=== PATIENT | female | born 1945 | race Caucasian/White ===

== ENCOUNTER 2024-05-14 05:37 | Day surgery (SDC) | payer MEDICARE, BC ==
[2024-05-09 11:17] LABS: BASOPHILS # (AUTO) 0.1 X10'3 (0-0.2); BASOPHILS % (AUTO) 0.9 % (0-1); EOSINOPHILS # (AUTO) 0.1 X10'3 (0-0.9); EOSINOPHILS % (AUTO) 1.3 % (0-6); LYMPHOCYTES # (AUTO) 3.8 X10'3 (1.1-4.8); LYMPHOCYTES % (AUTO) 35.1 % (21-51); MEAN CORPUSCULAR HEMOGLOBIN 30.7 PG (27.0-31.0); MEAN CORPUSCULAR HGB CONC 33.3 g/dL (33.0-36.5); MEAN PLATELET VOLUME 8.6 FL (7.4-10.4); MONOCYTES # (AUTO) 0.8 X10'3 (0-0.9); MONOCYTES % (AUTO) 6.9 % (2-12); NEUTROPHILS # (AUTO) 6.1 X10'3 (1.8-7.7); NEUTROPHILS % (AUTO) 55.8 % (42-75); PRE OP HEMATOCRIT 42.7 % (35.0-45.0); PRE OP HEMOGLOBIN 14.2 g/dL (12.0-16.0); PRE OP PLATELET COUNT 322 X10'3 (140-440); PRE OP WHITE BLOOD COUNT 10.9 10'3 (4.8-10.8); RED BLOOD COUNT 4.65 X10'6 (4.20-5.60); RED CELL DISTRIBUTION WIDTH 13.5 % (11.5-14.5)
[2024-05-09 11:38] LABS: ALBUMIN/GLOBULIN RATIO 1.2 (1.1-1.5); ALKALINE PHOSPHATASE 63 IU/L (46-116); BLOOD UREA NITROGEN 9 MG/DL (7-18); BUN/CREATININE RATIO 13.2 (10.0-20.0); CALCIUM 8.7 MG/DL (8.5-10.1); CHLORIDE 107 MMOL/L (99-107); CREATININE 0.68 MG/DL (0.40-0.90); PRE OP ALT 44 U/L (30-65); PRE OP ANION GAP 9 (8-16); PRE OP AST 22 U/L (10-37); PRE OP BILIRUB, TOTAL 0.4 MG/DL (0.0-1.0); PRE OP GLUCOSE 93 MG/DL (70-104); PRE OP POTASSIUM 4.1 MMOL/L (3.4-5.1); PRE OP SODIUM 143 MMOL/L (135-145); TOTAL CARBON DIOXIDE 27.5 MMOL/L (24-32); TOTAL PROTEIN 7.3 G/DL (6.4-8.2); eGFR 84 ML/MIN
[2024-05-14] VITALS (7 sets, daily range): BP systolic 129–139; BP diastolic 66–93; PULSE 61–84; RESP 11–17; TEMP 98.2; O2SAT 95–98
[~2024-05-14] VITALS: Ht 161.3 cm; Wt 73.9 kg
[2024-05-14] MEDS: ceFAZolin 2gm in dextrose, iso 50 ML IV ONE (05:30)
[~2024-05-14 05:37] MED LIST: ATOR40TA72 PO; BISA-78 PO; DOCU-148 PO; LEVO75TA7 PO; LORA10TA7 PO; LUBI8CAP PO; MAGN100T PO; MONT-40 PO; MULT-1249 PO; NAPR220T67 PO; PUMPKIN SEED OIL PO; SENAKOT PO; SUPER C PO; TIRZ10PE SQ; [UNRECOGNIZED DRUG - OTHER] PO; [UNRECOGNIZED DRUG - REMARK] PO
[2024-05-14] MEDS ORDERED: BUPIVAcaine/PF 2.5mg/ml (0.25%) 10ml vial ONE (06:45)
[2024-05-14] MEDS ORDERED: LIDOcaine 2% (20mg/ml) 5ml vial ONE (06:45)
[2024-05-14] MEDS: famotidine 20mg tablet PO ONE (06:53)
[2024-05-14] MEDS: ringers solution, lacted 1,000 ML IV SCH (06:54)
[2024-05-14] MEDS ORDERED: midazolam 1 mg/ML 2ml injection ONE (08:13)
[2024-05-14] MEDS ORDERED: fentaNYL/PF 50MCG/1 ML 2ML syringe ONE (08:13)
[2024-05-14] MEDS ORDERED: propofol inj 20 ML IV ONE (08:24)
[2024-05-14] MEDS: BUPIVAcaine/PF 2.5mg/ml (0.25%) 10ml vial IJ ONE (09:09)
== END 2024-05-14 09:34 | disposition home or self-care (01) ==
LOC: PAS 05:37
PROVIDERS: ATTEND Orthopaedic Surgery Hand Surgery
DX: M65.311 Trigger thumb, right thumb (principal); G62.9 Polyneuropathy, unspecified; E03.9 Hypothyroidism, unspecified; Z79.899 Other long term (current) drug therapy; Z98.890 Other specified postprocedural states; Z87.891 Personal history of nicotine dependence; Z90.710 Acquired absence of both cervix and uterus; Z88.6 Allergy status to analgesic agent; Z88.8 Allergy status to other drugs, medicaments and biological substances; Z91.09 Other allergy status, other than to drugs and biological substances; E78.00 Pure hypercholesterolemia, unspecified
CPT/HCPCS: 26055; 36415; 80053; 82948; 85025; 93005; A4215; A6449; J0690; J2003; J2250; J2704; J3010; J3490; J7030; J7120; Z7506; Z7512; Z7610